=== PATIENT | female | born 1990 | race Caucasian/White ===

== ENCOUNTER 2017-11-27 18:33 | Outpatient (CLI) | payer OTHER ==
[2017-11-27] MEDS ORDERED: IRON18 MG PO (18:57)
[2017-11-27] MEDS ORDERED: FOLIC ACID0.4 MG PO (18:57)
== END 2017-11-28 16:26 | disposition home or self-care (01) ==
LOC: OBS/DEL 18:33
DX: O60.03 Preterm labor without delivery, third trimester (principal); Z34.83 Encounter for supervision of other normal pregnancy, third trimester

== ENCOUNTER 2018-01-24 21:51 | Outpatient (CLI) | payer OTHER ==
[~2018-01-24 21:51] MED LIST: FOLIC ACID0.4 MG PO; IRON18 MG PO
== END 2018-01-25 11:48 | disposition home or self-care (01) ==
LOC: OBS/DEL 21:51
DX: O26.893 Other specified pregnancy related conditions, third trimester (principal); R10.2 Pelvic and perineal pain; Z34.83 Encounter for supervision of other normal pregnancy, third trimester

== ENCOUNTER 2018-01-29 06:36 | Inpatient (IN) | payer OTHER ==
[~2018-01-29] VITALS: Ht 180.3 cm; Wt 59.4 kg
== END 2018-01-31 18:36 | disposition home or self-care (01) | DRG 807 ==
LOC: LDR 06:36 → OB/GYN 20:22
PROC: 10E0XZZ Delivery of Products of Conception, External Approach (ICD-10-PCS; principal; 2018-01-29)
PROC: 4A1HXCZ Monitoring of Products of Conception, Cardiac Rate, External Approach (ICD-10-PCS; 2018-01-29)
DX: O80 Encounter for full-term uncomplicated delivery (principal); Z37.0 Single live birth; Z3A.39 39 weeks gestation of pregnancy